=== PATIENT | female | born 1945 | race Caucasian/White ===

== ENCOUNTER 2019-10-15 10:36 | Outpatient (CLI) | payer MEDICARE, SELFPAY ==
--- NOTE | ~2019-10-15 | XR_ITS ---
EXAMINATION: XR abdomen/kub 1V DATE: 10/15/2019 11:01 INDICATION: Calcium kidney stone. TECHNIQUE: A supine view of the abdomen on 2 radiographs was obtained. COMPARISON: Abdomen radiograph 10/21/2018, CT abdomen and pelvis 09/10/2018 FINDINGS: There are no dilated loops of bowel. The kidneys are obscured by bowel. Surgical clips in t he right upper quadrant are likely from cholecystectomy. IMPRESSION: 1. No visible urolithiasis. Reviewed, dictated and finalized at location A. IMPRESSION: 1. No visible urolithiasis.
== END 2019-10-15 10:37 | disposition home or self-care (01) ==
LOC: ANHIMG 10:48
PROVIDERS: PCP Internal Medicine; Visit Provider Urology
DX: N20.0 Calculus of kidney (principal)
CPT/HCPCS: 74018

== ENCOUNTER → 2020-02-01 07:17 | Outpatient (CLI) | payer MEDICARE, SELFPAY ==
--- NOTE | ~2020-02-01 | MM_ITS ---
EXAMINATION: MM screening desiree BI w emmanuel HISTORY: Screening TECHNIQUE: Craniocaudal and mediolateral oblique 3-D tomosynthesis images were obtained and synthetic 2-D images were generated. CAD analysis was submitted and interpreted. COMPARISON: Comparison to multiple prior studies sequentially, with oldest reviewed study dated 04/2012. BREAST PARENCHYMAL COMPOSITION: The breasts are heterogeneously dense, which may obscure small masses . FINDINGS: There are developing clustered calcifications in the upper central aspect of the left breas t, middle third. The right breast is stable without evidence for malignancy. IMPRESSION: 1. Developing clustered left breast calcifications. 2. Magnification views are recommended. BI-RADS Category 0: Incomplete: Needs additional imaging evaluation. Reviewed, dictated and finalized at location A.
== END ==
PROVIDERS: PCP Internal Medicine; Visit Provider Internal Medicine
DX: Z12.31 Encounter for screening mammogram for malignant neoplasm of breast (principal)
CPT/HCPCS: 77063; 77067

== ENCOUNTER → 2020-02-01 07:19 | Outpatient (CLI) | payer MEDICARE, SELFPAY ==
--- NOTE | ~2020-02-01 | MR_ITS ---
EXAMINATION: MR shoulder RT wo con DATE: 02/01/2020 09:08 INDICATION: Right shoulder pain and weakness TECHNIQUE: Magnetic resonance imaging (MRI) of the right shoulder was performed without intravenous c ontrast. Sequences included axial PD-weighted FS FSE, coronal oblique PD-weighted FS FSE, coronal obl ique T2-weighted FS FSE, sagittal PD-weighted FS FSE, and sagittal T1-weighted SE. COMPARISON: None. FINDINGS: Coracoacromial arch: The acromion undersurface is flat in morphology (type I) with small subacromial spurs. The coracoacro mial ligament is normal. Mild acromioclavicular osteoarthritis. Rotator cuff: Moderate supraspinatus and severe infraspinatus tendinopathy with full-thickness tear extending appro ximately 2.5 cm AP along the superior and middle facet footplates of both tendons. There appear to be a few residual intact fibers at the anteriormost supraspinatus tendon and posterior most infraspinat us tendon. There is up to 2.2 cm medial retraction of the tear margin which is located at level of th e apex of the humeral head. Mild subscapularis tendinopathy with small longitudinal split tear extend ing approximately 1 cm medial to lateral along the otherwise intact distal fibers at the cephalad asp ect of the tendon. The teres minor tendon is normal. Medial retraction and mild fatty atrophy of the supraspinatus and infraspinatus muscle bellies. Biceps tendon, glenoid labrum and glenohumeral cartilage: Long head of the biceps tendon is normal. Glenoid labrum is normal. Articular cartilage is normal. Fluid: Glenohumeral joint effusion with small amount of fluid in the joint space but with extension of a lar ge amount of fluid through the full-thickness rotator cuff tear into the subacromial/subdeltoid bursa . There is also more medial tracking of fluid within a ganglion cyst extending along the torn infrasp inatus tendon into the cephalad aspect of the muscle belly. There is proportional extension of a smal l amount of fluid along the long head biceps tendon sheath. No loose osteochondral bodies. Bones: Normal marrow signal with no edema, fracture or pathologic marrow replacing process. IMPRESSION: 1. Large full-thickness rotator cuff tear involving nearly entire superior and medial facet footplate s of the supraspinatus and infraspinatus tendons which measures 2.5 cm AP and 2.2 cm medial to latera l. 2. Mild subscapularis tendinopathy with small longitudinal split tear at the cephalad aspect of the d istal tendon. 3. Likely reactive glenohumeral joint effusion extending into the subacromial/subdeltoid bursa as wel l as and large infraspinatus intramuscular ganglion cyst. Reviewed, dictated and finalized at location A. IMPRESSION: 1. Large full-thickness rotator cuff tear involving nearly entire superior and medial facet footplates of the supraspinatus and infraspinatus tendons which me asures 2.5 cm AP and 2.2 cm medial to lateral. 2. Mild subscapularis tendinopathy with small longitudinal split tear at the ce phalad aspect of the distal tendon. 3. Likely reactive glenohumeral joint effusion extending into the subacromial/s ubdeltoid bursa as well as and large infraspinatus intramuscular ganglion cyst.
== END ==
PROVIDERS: PCP Internal Medicine; Visit Provider Orthopaedic Surgery
DX: M25.511 Pain in right shoulder (principal); M75.101 Unspecified rotator cuff tear or rupture of right shoulder, not specified as traumatic; M75.81 Other shoulder lesions, right shoulder
CPT/HCPCS: 73221

== ENCOUNTER → 2020-02-24 07:36 | Outpatient (CLI) | payer MEDICARE, SELFPAY ==
--- NOTE | ~2020-02-24 | MM_ITS ---
EXAMINATION: MM diagnostic mammo unilat LT HISTORY: Indeterminate left breast calcifications on screening mammogram TECHNIQUE: Magnification views of the left breast were performed. CAD analysis was submitted and inte rpreted. COMPARISON: 02/01/2020, 12/11/2018, 11/19/2017, 08/28/2016 FINDINGS: Grouped calcifications are present in the middle third of the upper breast at the 12:00 loc ation 8 cm from the nipple. Many are large and rodlike in morphology. These appear similar in distrib ution and morphology compared to prior mammograms although magnification views have not been previous ly performed. IMPRESSION: 1. Probably benign left breast calcifications. 2. Recommend 6 month follow-up left diagnostic mammogram. BI-RADS category 3, probably benign findings. Reviewed, dictated and finalized at location A.
== END ==
PROVIDERS: PCP Internal Medicine; Visit Provider Internal Medicine
DX: R92.8 Other abnormal and inconclusive findings on diagnostic imaging of breast (principal)
CPT/HCPCS: 77065

== ENCOUNTER → 2020-08-16 07:54 | Outpatient (CLI) | payer MEDICARE, SELFPAY ==
--- NOTE | ~2020-08-16 | MMUS_ITS ---
EXAMINATION: MM diagnostic desiree LT w emmanuel, US breast LT limited HISTORY: Six-month follow-up for probably benign left breast calcifications TECHNIQUE: Craniocaudal, mediolateral, and mediolateral oblique 3-D tomosynthesis images of the left breast were performed and synthetic 2-D images were generated. Magnification views are also obtained. CAD analysis was submitted and interpreted. High resolution limited left breast ultrasound was perfo rmed. COMPARISON: 02/24/2020, 02/01/2020, 12/11/2018, 11/19/2017 BREAST PARENCHYMAL COMPOSITION: The breasts are heterogeneously dense, which may obscure small masses . FINDINGS: MAMMOGRAPHIC FINDINGS: There are stable grouped calcifications in the middle third of the upper breast at the 12:00 location approximately 8 cm from the nipple. Many appear large and rodlike in morphology and are similar in d istribution compared to prior mammograms. Focal asymmetry is present in the posterior third of the ce ntral breast in line with the nipple axis. ULTRASOUND: There is a questionable 8 mm oval hypoechoic mass at the 1:30 location 8.5 cm from the nipple with no posterior features or internal vascularity. IMPRESSION: 1. Probably benign left breast calcifications and left breast focal asymmetry. 2. Recommend 6 month follow-up diagnostic mammogram and ultrasound. BI-RADS category 3, probably benign findings. Reviewed, dictated and finalized at location A. IMPRESSION: 1. Probably benign left breast calcifications and left breast focal asymmetry. 2. Recommend 6 month follow-up diagnostic mammogram and ultrasound. BI-RADS category 3, probably benign findings.
== END ==
PROVIDERS: PCP Internal Medicine; Visit Provider Internal Medicine
DX: R92.8 Other abnormal and inconclusive findings on diagnostic imaging of breast (principal)
CPT/HCPCS: 76642; 77061; 77065; G0279

== ENCOUNTER → 2021-02-17 07:39 | Outpatient (CLI) | payer MEDICARE, SELFPAY ==
--- NOTE | ~2021-02-17 | MMUS_ITS ---
EXAMINATION: MM diagnostic desiree BI w emmanuel, US breast BI complete HISTORY: Six-month follow-up of probably benign left breast calcifications and left breast focal asym metry, screening of right breast TECHNIQUE: Bilateral full field and spot 3-D tomosynthesis images were performed and synthetic 2-D im ages were generated. CAD analysis was submitted and interpreted. High resolution bilateral complete b reast ultrasound including all 4 quadrants and subareolar areas was performed. COMPARISON: diagnostic left mammogram and limited left breast ultrasound 02/24/2020 diagnostic left mammogram 02/01/2020, 12/12/2018, 11/19/2017 bilateral digital screening mammogram examinations BREAST PARENCHYMAL COMPOSITION: The breasts are heterogeneously dense, which may obscure small masses . FINDINGS: MAMMOGRAPHIC FINDINGS: Occasional bilateral benign calcifications are noted. Suggestion of subtle architectural distortion in the upper outer quadrant of the right breast. No reproducible suspicious mass or architectural distortion or any malignant calcification, skin thic kening or retraction is noted otherwise. Dense stroma, particularly in the upper outer quadrants may obscure masses. ULTRASOUND: Right breast: There is a focal area of irregular hypoechogenicity with posterior shadowing at 10:00 10 cm from the nipple, which may correspond with subtle architectural distortion suggested in the upper outer quadra nt of the right breast in similar location. Ultrasound-guided biopsy of this area is recommended. There are some prominent ducts in the subareolar area of the right breast. Left breast: 1-2:00 8 cm from nipple: Parallel circumscribed hypoechoic 4.5 x 8.1 x 7.2 mm area without internal v ascularity or suspicious shadowing, not significantly changed since 08/16/2020 Some prominent ducts are noted in the subareolar area of the left breast IMPRESSION: 1. Subtle mammographic right upper outer quadrant architectural distortion and focal irregular sonogr aphic hypoechogenicity and posterior shadowing at right breast 10:00 10 cm from nipple 2. Ultrasound-guided biopsy of right breast 10:00 10 cm from nipple is recommended BI-RADS category 4, suspicious findings. Dr. Velazquez telephoned the report and ultrasound guided biopsy recommendation of right breast 10:00 area on 02/17/[address] Jorgito Shuklas Amanda Vidal. Reviewed, dictated and finalized at location A. IMPRESSION: 1. Subtle mammographic right upper outer quadrant architectural distortion and focal irregular sonographic hypoechogenicity and posterior shadowing at right b reast 10:00 10 cm from nipple 2. Ultrasound-guided biopsy of right breast 10:00 10 cm from nipple is recommen ded BI-RADS category 4, suspicious findings. Dr. Velazquez telephoned the report and ultrasound guided biopsy recommendation of r ight breast 10:00 area on 02/17/[address] Jorgito Bills's Amanda Vidal.
== END ==
PROVIDERS: PCP Internal Medicine; Visit Provider Internal Medicine
DX: N64.89 Other specified disorders of breast (principal); R92.8 Other abnormal and inconclusive findings on diagnostic imaging of breast
CPT/HCPCS: 76641; 77062; 77066; G0279